=== PATIENT | male | born 1965 | race Caucasian/White ===

== ENCOUNTER → 2019-03-22 | Outpatient (REF) | payer OTHER ==
[2019-03-22 14:25] LABS: RHEUMATOID FACTOR QUANT < 10.0 IU/ML (<15.0)
[2019-03-22 14:35] LABS: VITAMIN B12 LEVEL 702 PG/ML
[2019-03-26 11:29] LABS: DRVV SCREEN 42.5 SEC
[2019-03-26 11:34] LABS: PTT LUPUS TYPE ANTICOAG SCREEN 1.1 (0-1.2)
== END ==
LOC: M LABNEURO 09:31
PROVIDERS: ATTEND Psychiatry & Neurology Neurology
DX: G45.9 Transient cerebral ischemic attack, unspecified (principal)

== ENCOUNTER → 2019-09-14 | Outpatient (CLI) | payer OTHER ==
--- NOTE | 2019-11-13 11:25 | ECGEPIP ---
[facility] Test Date: 2019-09-14 Pat Name: FRANSICO OLIVO Department: Room: - Gender: Male [employer]: [employer] : 1965 Requested By: Irineo Teresa Order Number: [id number] Reading MD: Nicho Syed Measurements Intervals [place] Rate: 92 P: 58 KS: 174 QRS: 61 QRSD: 99 T: 45 QT: 330 QTc: 409 Interpretive Statements SINUS RHYTHM WITH MINIMAL REPOLORIZATION ABNORMALITY NORMAL ECG OTHERWISE NO PRIOR TRACING AT THIS TIME SEE SCANNED DOWNTIME REPORT
== END ==
LOC: M EKG 10:25
PROVIDERS: ATTEND Orthopaedic Surgery
DX: Z01.810 Encounter for preprocedural cardiovascular examination (principal); I10 Essential (primary) hypertension